=== PATIENT | male | born 1955 | race Caucasian/White ===

== ENCOUNTER 2017-07-01 18:39 | Emergency (ER) | payer BC ==
[2017-07-01] MEDS ORDERED: ASPIRIN 81 MG TABLET, CHEWABLE PO ONE (18:59)
--- NOTE | 2017-07-01 19:06 | ER Document Report ---
ED Medical Screen (RME) - General Chief Complaint: Leg Injury Stated Complaint: DR FOSS/ LEG WEAKNESS, NUMBNESS Time Seen by Provider: 07/01/17 18:59 Notes: Patient is here because his left leg has given out on him twice this morning. Earlier today, he was walking in his yard and his left leg gave out and he fell to the ground. He said he could not feel anything in the leg for a short time after the fall but he was eventually able to stand back up and go back to walking and doing what he was doing. Later today, he was at [employer] and felt like his left leg was going to give out again so he grabbed the shopping cart and held himself up. Each time, patient says his vision became blurry, but had no other neurologic symptoms. No involvement of his speech. No facial drooping , according to his . No headache. Has not had any chest pains, shortness of breath, etc. Patient has a history of hypothyroidism on medications. He takes a baby aspirin daily. Survivor of prostate cancer. Does not smoke. No history of heart disease. Regular cardiac rhythm on auscultation. No carotid bruits heard. Able to examine the patient's lower extremities because were in triage. TRAVEL OUTSIDE OF THE [place] IN LAST 30 DAYS: No Past Medical History Renal/ Medical History: Denies: Hx Peritoneal Dialysis Physical Exam - Vital signs Vitals: Temp Pulse Resp BP Pulse Ox 98.5 F 65 20 106/63 96 07/01/17 18:42 07/01/17 18:42 07/01/17 18:42 07/01/17 18:42 07/01/17 18:42 Course - Vital Signs Vital signs: Temp Pulse Resp BP Pulse Ox 98.5 F 65 20 106/63 96 07/01/17 18:42 07/01/17 18:42 07/01/17 18:42 07/01/17 18:42 07/01/17 18:42
[2017-07-01 19:23] LABS: ABSOLUTE BASOPHILS # (AUTO) 0.1 10^3/uL (0.0-0.2); ABSOLUTE EOSINOPHILS # (AUTO) 0.3 10^3/uL (0.0-0.6); ABSOLUTE LYMPHOCYTES (AUTO) 1.8 10^3/uL (0.5-4.7); ABSOLUTE MONOCYTES (AUTO) 0.7 10^3/uL (0.1-1.4); ABSOLUTE NEUT (AUTO) 4.2 10^3/uL (1.7-8.2); BASOPHILS % (AUTO) 1.2 % (0-2); EOSINOPHILS % (AUTO) 4.1 % (0-6); HEMOGLOBIN 13.4 g/dL (13.5-17.0); HGB HCT DIFFERENCE 1.2; LYMPHOCYTES % (AUTO) 25.4 % (13-45); MEAN CORPUSCULAR HEMOGLOBIN 29.8 pg (27.0-33.4); MEAN CORPUSCULAR HGB CONC 34.3 g/dL (32.0-36.0); MEAN CORPUSCULAR VOLUME 87 fl (80-97); MONOCYTES % (AUTO) 9.4 % (3-13); RED BLOOD COUNT 4.49 10^6/uL (4.35-5.55); RED CELL DISTRIBUTION WIDTH 14.6 % (11.5-14.0); SEGMENTED NEUTROPHILS % (AUTO) 59.9 % (42-78)
[2017-07-01 19:40] LABS: ALANINE AMINOTRANSFERASE 25 U/L (21-72); ALBUMIN 3.7 g/dL (3.5-5.0); ALKALINE PHOSPHATASE 90 U/L (38-126); ANION GAP 8 (5-19); ASPARTATE AMINO TRANSFERASE 15 U/L (17-59); BILIRUBIN,DIRECT 0.3 mg/dL (0.0-0.4); BILIRUBIN,TOTAL 0.4 mg/dL (0.2-1.3); BLOOD UREA NITROGEN 15 mg/dL (7-20); CARBON DIOXIDE 26 mmol/L (22-30); CHLORIDE 106 mmol/L (98-107); CREATINE KINASE 74 U/L (55-170); CREATININE RESULT 0.98 mg/dL (0.52-1.25); GLUCOSE 130 mg/dL (75-110); POTASSIUM 4.1 mmol/L (3.6-5.0); SODIUM 139.8 mmol/L (137-145); TOTAL PROTEIN 6.1 g/dL (6.3-8.2)
--- NOTE | 2017-07-01 19:50 | ER Document Report ---
ED General - General Chief Complaint: Leg Injury Stated Complaint: DR FOSS/ LEG WEAKNESS, NUMBNESS Time Seen by Provider: 07/01/17 18:59 Notes: Patient is a 62-year-old male that comes emergency department for chief complaint of left leg numbness. He states that his leg gave out on him earlier this afternoon when he was walking in the yard, it went completely numb for a few minutes, then improved and he was able to walk again. He states it did again the same way a couple hours later in the store and he had to hold himself up on a shopping cart. He again improved but he still has numbness in the left leg. He denies any other symptoms including facial droop, difficulty speaking, weakness in his left arm, bowel or bladder incontinence. He denies any pain. He had surgery on his lumbar spine in 1988, he believes it was not herniated disc repair and he denies any hardware. He states he is unsure of specific details. He also has a history of prostate cancer, in recovery and not currently on the either radiation or chemotherapy. Only other medical history of hypothyroidism. TRAVEL OUTSIDE OF THE [place] IN LAST 30 DAYS: No Past Medical History - General Information source: Patient - Social History Smoking Status: Never Smoker Chew tobacco use (# tins/day): No Frequency of alcohol use: None Drug Abuse: None Lives with: Family Family History: Reviewed & Not Pertinent Patient has suicidal ideation: No Patient has homicidal ideation: No Endocrine Medical History: Reports: Hx Hypothyroidism Renal/ Medical History: Denies: Hx Peritoneal Dialysis Malignancy Medical History: Reports Hx Prostate Cancer Past Surgical History: Reports: Hx Orthopedic Surgery - Immunizations Immunizations up to date: Yes Hx Diphtheria, Pertussis, Tetanus Vaccination: Yes Review of Systems - Review of Systems Constitutional: No symptoms reported EENT: No symptoms reported Cardiovascular: See HPI Respiratory: No symptoms reported Gastrointestinal: No symptoms reported Genitourinary: No symptoms reported Male Genitourinary: No symptoms reported Musculoskeletal: See HPI Skin: No symptoms reported Hematologic/Lymphatic: No symptoms reported Neurological/Psychological: See HPI Physical Exam - Vital signs Vitals: Temp Pulse Resp BP Pulse Ox 98.5 F 65 20 106/63 96 07/01/17 18:42 07/01/17 18:42 07/01/17 18:42 07/01/17 18:42 07/01/17 18:42 Interpretation: Normal - General General appearance: Appears well In distress: None - HEENT Head: Normocephalic, Atraumatic Eyes: Normal Pupils: PERRL - Respiratory Respiratory status: No respiratory distress Chest status: Nontender Breath sounds: Normal Chest palpation: Normal - Cardiovascular Rhythm: Regular Heart sounds: Normal auscultation Murmur: No - Abdominal Inspection: Normal Distension: No distension Bowel sounds: Normal Tenderness: Nontender Organomegaly: No organomegaly - Rectal Notes: normal rectal tone; no pain. No obvious abnormalities - Back Back: Normal, Nontender - Extremities General upper extremity: Normal inspection, Nontender, Normal color, Normal ROM , Normal temperature General lower extremity: Other - I tested and retested patient sensation in the left leg. It is significantly reduced compared to the right. He still has some minimal sensation distally but it is definitely reduced. Normal vascular exam. Normal coloration. Normal range of motion and strength. Normal examination otherwise. - Neurological Neuro grossly intact: Yes Cognition: Normal Orientation: AAOx4 Alviso Coma Scale Eye Opening: Spontaneous Allen Coma Scale Verbal: Oriented Alviso Coma Scale Motor: Obeys Commands Alviso Coma Scale Total: 15 Speech: Normal Motor strength normal: LUE, RUE, LLE, RLE Sensory: Normal - Psychological Associated symptoms: Normal affect, Normal mood - Skin Skin Temperature: Warm Skin Moisture: Dry Skin Color: Normal Course - Re-evaluation Re-evalutation: Patient does have normal rectal tone but he has specific numbness that is reproducible on exam without change. Because of intermittent symptoms in the same location it is less likely this is a central abnormality. Normal Neurological exam otherwise except for chronic right lateral thigh numbness that he has had since his original back surgery. Spoke with Dr. Ugalde. Because of patient's history of prostate cancer this is most likely a peripheral abnormality. Concern for lesion on the spinal cord. Spoke with radiologist on-call, Dr. Gonzalez, she recommends MRI of the thoracic and lumbar spine without contrast and also AP films/x-rays of the spine. Patient denies any hardware in his back. MRI showing grade 2 anterolisthesis at the L4-L5 level with contact at the L4 nerve. This is most likely the cause of patient's symptoms. Patient currently is able to ambulate and does not have complete numbness. Discussed with Dr. Yousif (Dr. Ugalde in a trauma case) patient was provided with a disc of his results, report, and this was discussed in detail. Discussed return precautions in detail as well., recommends steroids now and close followup with primary for referral. Patient and state satisfaction and agreement with plan. - Vital Signs Vital signs: Temp Pulse Resp BP Pulse Ox 98.4 F 53 L 16 127/63 H 96 07/01/17 23:56 07/01/17 23:56 07/01/17 23:56 07/01/17 23:56 07/01/17 23:56 - Laboratory Result Diagrams: 07/01/17 19:13 07/01/17 19:13 Laboratory results interpreted by me: 07/01/17 07/01/17 19:13 19:13 Hgb 13.4 L RDW 14.6 H Glucose 130 H AST 15 L Total Protein 6.1 L Discharge - Discharge Clinical Impression: Left leg numbness Condition: Stable Disposition: HOME, SELF-CARE Additional Instructions: Your imaging shows compression on the nerve at the L4 spinal level. This is most likely the cause of your symptoms of numbness in your leg. Please bring the disc and report in a close follow-up with your primary care for referral to spinal orthopedics. Take prednisone as prescribed. Return to the emergency department for any concerning worsening symptoms including loss of bowel or bladder functioning, fever, or any other concerning symptoms. Prescriptions: Prednisone [Deltasone 10 mg Tablet] 10 mg PO ASDIR PRN #21 tablet PRN Reason: Forms: Return to Work
[2017-07-01 20:05] LABS: TROPONIN I < 0.012 ng/mL
--- NOTE | 2017-07-01 20:55 | RADIOLOGY REPORT (SQ) ---
EXAM DESCRIPTION: SPINE ENTIRE AP/LAT COMPLETED DATE/TIME: 07/01/2017 8:39 pm REASON FOR STUDY: ? mets disease (prostate CA hx) COMPARISON: None. NUMBER OF VIEWS: Seven views. TECHNIQUE: Frontal and lateral radiographs were obtained of the spine. LIMITATIONS: None. FINDINGS: Grade 2 anterolisthesis is seen at the L4/5 level. Mild degenerative changes are seen at the thoracolumbar junction. Osseous mineralization and alignment are otherwise normal, without evide nce of lytic or sclerotic metastases. The surrounding soft tissues are grossly unremarkable. IMPRESSION: No radiographic evidence of metastatic disease. Grade 2 anterolisthesis at the L4/5 lev el may be related to the patient's presenting lower extremity symptoms. TECHNICAL DOCUMENTATION: JOB ID: [id number] [employer]- All Rights Reserved
--- NOTE | 2017-07-01 22:49 | RADIOLOGY REPORT (SQ) ---
EXAM DESCRIPTION: MRI THORACIC SPINE WITHOUT COMPLETED DATE/TIME: 07/01/2017 10:28 pm REASON FOR STUDY: left leg numbness COMPARISON: None. TECHNIQUE: Sagittal and Axial imaging includes T1, T2, STIR and gradient echo sequences. LIMITATIONS: None. FINDINGS: LOCALIZER: No worrisome findings. ALIGNMENT: Normal. VERTEBRAE: Intact. BONE MARROW: Normal. No marrow replacement or reactive changes. HARDWARE: None in the spine. CORD: Normal in size and signal intensity. SOFT TISSUES: No soft tissue masses. Incidental note is made of a partially imaged right renal cyst. THORACIC DISCS T1-T12: No significant spinal stenosis or exit foraminal stenosis. LOWER CERVICAL: Incompletely imaged. No significant spinal stenosis or exit foraminal stenosis. UPPER LUMBAR: Incompletely imaged. No significant spinal stenosis or exit foraminal stenosis. OTHER: No other significant finding. IMPRESSION: No evidence of significant degenerative change or osseous metastases. TECHNICAL DOCUMENTATION: JOB ID: [id number] [employer]- All Rights Reserved
--- NOTE | 2017-07-01 22:55 | RADIOLOGY REPORT (SQ) ---
EXAM DESCRIPTION: MRI LUMBAR SPINE WITHOUT COMPLETED DATE/TIME: 07/01/2017 10:28 pm REASON FOR STUDY: left leg numbness COMPARISON: None. TECHNIQUE: Sagittal and Axial imaging includes T1, T2, STIR and gradient echo sequences. Coronal T2/ HASTE imaging. LIMITATIONS: None. FINDINGS: VISUALIZED UPPER ABDOMEN: Limited evaluation. No acute or suspicious findings suggested. SEGMENTATION: No transitional anatomy. The lowest well-developed disc space is labeled L5-S1. ALIGNMENT: Grade 2 anterolisthesis at the L4/5 level on the basis bilateral pars interarticularis def ects. VERTEBRAE: Intact. BONE MARROW: Reactive changes at the L4/5 level and thoracolumbar junction. DISC SIGNAL: Near complete loss of L4/5 intervertebral disc height due to above described anterolisth esis. The remaining intervertebral disc heights and signal appear to be largely preserved. POSTERIOR ELEMENTS: Bilateral pars interarticularis defects at the L4 level. HARDWARE: None in the spine. CORD AND CONUS: Normal in size and signal intensity. Conus at the appropriate level. SOFT TISSUES: No aortic aneurysm seen. No bulky retroperitoneal adenopathy or mass. No paraspinal mas s or fluid. L1-L2: No significant spinal stenosis or exit foraminal stenosis. L2-L3: No significant spinal stenosis or exit foraminal stenosis. L3-L4: No significant spinal stenosis or exit foraminal stenosis. L4-L5: Uncovering of the disc with anterior rotation of the neural foramina, resulting in bilateral c ontact with the exiting L4 nerve roots. L5-S1: No significant spinal stenosis or exit foraminal stenosis. LOWER THORACIC: Incompletely imaged. No stenosis seen. SACRUM: Visualized upper sacrum intact. OTHER: Bilateral renal cysts. IMPRESSION: 1. No evidence of osseous metastases. 2. Grade 2 anterolisthesis of the L4/5 level resulting in bilateral L4 nerve root contact. TECHNICAL DOCUMENTATION: JOB ID: [id number] [employer]- All Rights Reserved
[2017-07-01] MEDS ORDERED: METHYLPREDNISOLONE INJ 125 MG/2 ML SDV IV ONE (23:25)
--- NOTE | 2017-07-01 23:41 | EKG REPORT ---
SEVERITY:- BORDERLINE ECG - SINUS RHYTHM BORDERLINE T ABNORMALITIES, INFERIOR LEADS : Confirmed by: Brayden Yuen MD 01-Jul-2017 23:40:39
[2017-07-02 00:03] VITALS: BP 127/63
== END 2017-07-02 00:03 | disposition home or self-care (01) ==
LOC: ER 18:39
DX: R20.0 Anesthesia of skin (principal); R53.1 Weakness; E03.9 Hypothyroidism, unspecified
CPT/HCPCS: 93005; 99284; 96374; 36415; 82553; 82550; 85025; 85610; 80053; 84484; 72146; 72148; 72082; 93010; J2930